=== PATIENT | female | born 1960 | race Caucasian/White ===

== ENCOUNTER → 2017-10-04 | Outpatient (CLI) | payer OTHER ==
--- NOTE | 2017-10-04 15:41 | MAMMOGRAPHY REPORT ---
BILATERAL DIGITAL SCREENING MAMMOGRAM TOMOSYNTHESIS WITH CAD: 10/04/2017 CLINICAL HISTORY: Routine screening. Patient has no complaints. TECHNIQUE: Breast tomosynthesis in addition to standard 2D mammography was performed. Current study was also evaluated with a Computer Aided Detection (CAD) system. COMPARISON: Comparison is made to exams dated: 09/26/2016 mammogram, 09/23/2015 mammogram, 09/18/2014 ma mmogram, 05/02/2013 mammogram, 04/25/2012 mammogram, and 04/12/2011 mammogram - [facility]. BREAST COMPOSITION: There are scattered areas of fibroglandular density in both breasts. FINDINGS: No suspicious masses, calcifications, or areas of architectural distortion are noted in ei ther breast. There has been no significant interval change compared to prior exams. Small cluster of calcifications in the right upper outer quadrant is stable compared to multiple prior exams. Asymme try posterior to the left nipple on the cc view is stable compared to prior exams including the 2014 exam. IMPRESSION: ACR BI-RADS CATEGORY 2: BENIGN There is no mammographic evidence of malignancy. A 1 year screening mammogram is recommended. The pa tient will receive written notification of the results. Approximately 10% of breast cancers are not detected with mammography. A negative mammographic report should not delay biopsy if a clinically suggestive mass is present. Cristine Ladd M.D. 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
== END | disposition home or self-care (01) ==
LOC: C.MAMM 07:01
PROVIDERS: ATTEND Obstetrics & Gynecology
DX: Z12.31 Encounter for screening mammogram for malignant neoplasm of breast (principal)

== ENCOUNTER → 2017-10-26 | Outpatient (CLI) | payer OTHER ==
--- NOTE | 2017-10-26 10:58 | DIAGNOSTIC IMAGING REPORT ---
L KNEE 3 VIEWS CLINICAL HISTORY: 57 years-old Female presenting with LT KNEE PAIN. TECHNIQUE: Bilateral frontal view of the knees in standing position as well as sunrise and lateral views of the left knee were obtained. COMPARISON: None. FINDINGS: Prominent ossification along the proximal aspect of the right medial collateral ligament could suggest Laberto-Stieda lesion. A similar though more limited focus of calcification in the left knee is also present. No acute fracture or malalignment. Heterogeneity of the medullary space in the right femoral condyles greater in the medial condyle. Joint spaces preserved. No osteophytosis or other evidence of degenerative change. Prominent enthesophyte at the insertion of the quadriceps tendon. No large left knee joint effusion. IMPRESSION: 1. 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 Ossification is slightly more distal in the MCL than is seen in a typical Alberto-Stieda lesion, which should localize to the MCL origin. 2. No other evidence of degenerative change or acute osseous injury of the left knee. 3. Heterogeneity of the bone marrow in the right femoral condyles, most pronounced in the medial condyle. This is nonspecific and could suggest osteopenia or less likely osteonecrosis. Electronically signed by: Matthew Carroll M.D. 10/26/2017 10:57 AM Dictated Date/Time: 10/26/2017 10:52 AM
== END | disposition home or self-care (01) ==
LOC: C.RDSM 20:28
PROVIDERS: ATTEND Family Medicine
DX: M25.562 Pain in left knee (principal)

== ENCOUNTER → 2017-12-15 | Outpatient (CLI) | payer OTHER ==
--- NOTE | 2017-12-15 10:41 | DIAGNOSTIC IMAGING REPORT ---
R CLAVICLE CLINICAL HISTORY: Right clavicular swelling/deformity. COMPARISON: Right shoulder radiographs April 29, 2014. 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 There is slight bony prominence of the distal right clavicle. No fracture or suspicious lesion is present. There is mild to moderate osteophytosis. There is irregularity of the greater tuberosity which is insertional. IMPRESSION: 1. No acute fracture. No suspicious osseous lesion within the right clavicle by artifact. 2. Moderate osteoarthritis of the right acromioclavicular joint with slight bony prominence of the distal right clavicle which could account for the palpable finding. This is unchanged exam of April 29, 2014. Electronically signed by: Rosalio Jackson M.D. 12/15/2017 10:39 AM Dictated Date/Time: 12/15/2017 10:37 AM
--- NOTE | 2017-12-15 11:15 | DIAGNOSTIC IMAGING REPORT ---
LEFT CLAVICLE 2 VIEWS HISTORY: OTHER SPECIFIED DISORDERS OF BONE SHOULDER RICHARD COMPARISON: None. FINDINGS: There is no fracture or dislocation. Multiple calcifications at the supraspinatus tendon. Mild AC joint arthrosis demonstrated by joint space narrowing and small marginal osteophytes. No radiopaque foreign bodies. IMPRESSION: 1. No fractures within the left clavicle. 2. Mild AC joint arthrosis. 3. Supraspinatus calcific tendinitis. Electronically signed by: Tima Knowles M.D. 12/15/2017 11:13 AM Dictated Date/Time: 12/15/2017 11:12 AM
== END | disposition home or self-care (01) ==
LOC: C.RAD1850 10:19
PROVIDERS: ATTEND Physician Assistant
DX: M89.8X1 Other specified disorders of bone, shoulder (principal); M75.32 Calcific tendinitis of left shoulder

== ENCOUNTER → 2018-01-08 | Outpatient (CLI) | payer OTHER | END | disposition home or self-care (01) | LOC: C.MAMM 11:14 | PROVIDERS: ATTEND Physician Assistant | DX: M85.851 Other specified disorders of bone density and structure, right thigh (principal); M85.852 Other specified disorders of bone density and structure, left thigh ==